=== PATIENT | female | born 1995 | race Hispanic/Latino ===

== ENCOUNTER 2020-01-02 19:15 | Emergency (ER) | payer SELFPAY ==
[2020-01-02] MEDS ORDERED: SODIUM CHLORIDE 0.9% 1000 ML 1,000 ML IV ONE ×2 (19:33→19:34)
[2020-01-02] MEDS ORDERED: ZIPRASIDONE MESYLATE 20 MG VIAL IM ONE ×2 (19:34→19:36)
[2020-01-02] MEDS ORDERED: LORazepam 2 MG/ML VIAL IV ONE ×2 (19:34→21:06)
--- NOTE | 2020-01-02 19:35 | Emergency Department Report ---
History of Present Illness - General Chief Complaint: Overdose Stated Complaint: POSS OVERDOSE Time Seen by Provider: 01/02/20 19:20 Source: EMS Mode of arrival: Stretcher Limitations: Altered Mental Status - History of Present Illness Initial Comments: Patient is a 24-year-old female presents emergency room for possible overdose. Patient found to be altered. Patient is agitated. Patient difficult to control. Report from EMS. EMS states the patient has history of overdose and heroin use. Patient was given 2 of Narcan in the field with no response. MD Complaint: intentional overdose -: Sudden How Overdose Was Discovered: called family/friend Treatments Prior to Arrival: narcan, IV fluids - Related Data Allergies Allergy/AdvReac Type Severity Reaction Status Date / Time No Known Allergies Allergy Unverified 01/02/20 21:06 ED Review of Systems ROS: Stated complaint: POSS OVERDOSE Other details as noted in HPI Comment: Unobtainable due to pts medical conditions ED Past Medical Hx - Past Medical History Previous Medical History?: No - Surgical History Past Surgical History?: Yes - Family History Family history: no significant - Social History Smoking Status: Unknown if ever smoked Substance Use Type: Heroin ED Physical Exam - General General appearance: anxious, obtunded, other (Agitated) - Head Head exam: Present: atraumatic, normocephalic - Eye Eye exam: Present: normal appearance, PERRL Pupils: Present: mydriatic - ENT ENT exam: Present: mucous membranes dry - Neck Neck exam: Present: normal inspection - Respiratory Respiratory exam: Present: normal lung sounds bilaterally. Absent: respiratory distress, wheezes, rales - Cardiovascular Cardiovascular Exam: Present: regular rate, normal rhythm. Absent: systolic murmur, diastolic murmur, rubs, gallop - GI/Abdominal GI/Abdominal exam: Present: soft, normal bowel sounds - Rectal Rectal exam: Present: deferred - Extremities Exam Extremities exam: Present: normal inspection - Back Exam Back exam: Present: normal inspection - Neurological Exam Neurological exam: Present: altered - Expanded Neurological Exam Expanded Best Eye Response (Sage): (2) open to pain Best Motor Response (Eunice): (5) localizes to pain Best Verbal Response (Eunice): (2) incomprehsible sounds Eunice Total: 9 - Skin Skin exam: Present: warm, dry, intact, normal color. Absent: rash ED Course Vital Signs 0701/02/20 01/02/20 19:34 19:45 19:58 Temperature 98.6 F Pulse Rate 82 82 82 Respiratory 19 26 H 13 Rate Blood Pressure 125/98 72/31 Blood Pressure 72/31 [Right] O2 Sat by Pulse 99 100 100 Oximetry 01/02/20 01/02/20 01/02/20 20:00 20:15 20:29 Temperature Pulse Rate 75 104 H Respiratory 31 H 33 H 18 Rate Blood Pressure 72/31 72/31 Blood Pressure [Right] O2 Sat by Pulse 100 100 100 Oximetry 01/02/20 01/02/20 01/02/20 20:31 20:45 21:01 Temperature Pulse Rate 88 110 H 110 H Respiratory 31 H 27 H 36 H Rate Blood Pressure 72/31 72/31 116/69 Blood Pressure [Right] O2 Sat by Pulse 100 100 99 Oximetry 01/02/20 01/02/20 01/02/20 21:15 21:49 22:00 Temperature Pulse Rate 107 H 74 73 Respiratory 15 15 18 Rate Blood Pressure 116/69 116/69 114/75 Blood Pressure [Right] O2 Sat by Pulse 100 Oximetry 01/03/20 00:15 Temperature 98.1 F Pulse Rate 73 Respiratory 20 Rate Blood Pressure Blood Pressure 118/73 [Right] O2 Sat by Pulse 100 Oximetry - Reevaluation(s) Reevaluation #1: Initial valuation done. Patient is altered. Patient agitated and fighting with caregivers. Patient will be given Geodon and Ativan. Patient has a history of overdose. 01/02/20 19:31 Reevaluation #2: Patient resting comfortably in bed. Vital signs are being monitored. Vital signs are stable. 01/02/20 20:53 Reevaluation #3: Patient still resting in bed. Patient not agitated. Patient's vital signs stable. 01/02/20 21:53 Reevaluation #4: Patient still resting in bed. Patient still lethargic but arousable with lots of stimuli 01/02/20 00:53 Reevaluation #5: Patient is alert and oriented x3. Patient is awake in the room. Patient denies suicidal and homicidal ideations. Patient states this is an accidental overdose. Patient states she was just trying to get high with her friends. Patient states she was taking cocaine, meth, heroin. Patient's Hoover will be removed. I discussed all results and clinical findings with patient. I discussed plan of care with patient. Patient agrees with plan of care. Patient is stable for discharge. Patient will be discharged home. Patient given discharge instructions. Patient voiced understanding of discharge instructions. 01/03/20 02:48 ED Medical Decision Making - Lab Data Result diagrams: 01/02/20 19:54 01/02/20 19:54 - EKG Data -: EKG Interpreted by Me EKG shows normal: sinus rhythm, axis, intervals, QRS complexes, ST-T waves Rate: normal - Radiology Data Radiology results: report reviewed CT head/brain wo con INDICATION: ams. TECHNIQUE: All CT scans at this location are performed using the following dose modulation technique: Automated exposure control. CONTRAST: None. COMPARISON: None available. FINDINGS: The ventricular system is appropriate in size and configuration without midline shift. Negative for mass, stroke or hemorrhage. Imaged bones and paranasal sinuses are clear. IMPRESSION: Negative CT brain without contrast. - Medical Decision Making Patient is a 24-year-old female that presents emergency room for altered mental status, overdose and agitation. Patient was severely agitated and patient was given Geodon and Ativan. Patient had labs done which were essentially unremarkable except for a positive UDS. After patient was monitored for multiple hours, the patient became alert and oriented x4. Patient denied suicidal homicidal ideations. Patient also denied an intentional overdose and stated this was an ex overdose and the patient was try to get high. Patient's head CT was negative. Patient stable for discharge. Patient was given discharge instructions. I encouraged patient not to use drugs anymore. I encouraged patient to go to rehab. Patient will be given rehab resources. - Differential Diagnosis Overdose, drug abuse, altered mental status, agitation Critical Care Time: Yes Critical care time in (mins) excluding proc time.: 55 Critical care attestation.: If time is entered above; I have spent that time in minutes in the direct care o f this critically ill patient, excluding procedure time. Critical Care Time: 55 minutes ED Disposition Clinical Impression: Agitation, Polysubstance abuse Overdose Qualifiers: Encounter type: initial encounter Injury intent: accidental or unintentional Qualified Code(s): T50.901A - Poisoning by unspecified drugs, medicaments and biological substances, accidental (unintentional), initial encounter Altered mental status Qualifiers: Altered mental status type: unspecified Qualified Code(s): R41.82 - Altered mental status, unspecified Disposition: DC-01 TO HOME OR SELFCARE Is pt being admited?: No Does the pt Need Aspirin: No Condition: Stable Instructions: Benzodiazepine Abuse (ED), Cocaine Abuse (ED), Narcotic Abuse (ED), Methamphetamine Abuse (ED), Polysubstance Abuse (ED), Medical Clearance for Substance Abuse Treatment (ED) Additional Instructions: Patient to follow-up with primary care in 2 to 3 days. Patient to consider going to rehab. Patient to stop using drugs.. Patient to rest. Patient to increase water. Patient to take Tylenol or ibuprofen as needed for pain. Patient to return to the ER if condition worsens, changes or new symptoms arise. Referrals: PRIMARY CARE, [Primary Care Provider] - 2-3 Days [facility] [Outside] - 2-3 Days [facility] [Outside] - 2-3 Days Time of Disposition: 02:53
[2020-01-02] MEDS ORDERED: LORazepam 2 MG/ML VIAL ONE (19:37)
[2020-01-02 20:17] LABS: Basophils % (Auto) 0.3 % (0.0-1.8); Eosinophils % (Auto) 0.2 % (0.0-4.3); Hematocrit 43.5 % (30.3-42.9); Hemoglobin 14.4 gm/dl (10.1-14.3); Mean Corpuscular HGB Conc 33 % (30-34); Mean Corpuscular Volume 86 fl (79-97); Monocytes # (Auto) 0.6 K/mm3 (0.0-0.8); Monocytes % (Auto) 5.2 % (0.0-7.3); Platelet Count 386 K/mm3 (140-440); Red Blood Count 5.05 M/mm3 (3.65-5.03); Red Cell Distribution Width 16.1 % (13.2-15.2)
[2020-01-02 20:24] LABS: Alanine Aminotransferase 9 units/L (7-56); Albumin 4.7 g/dL (3.9-5); Blood Urea Nitrogen 9 mg/dL (7-17); Calcium 10.5 mg/dL (8.4-10.2); Hemolysis Index 38
[2020-01-02 20:28] LABS: BUN/Creatinine Ratio 15
[2020-01-02 20:43] LABS: Bacteria,Urine 1+ /HPF (Negative); Bilirubin,Urine NEG (Negative); Blood,Urine NEG (Negative); Color,Urine Yellow (Yellow); Mucus,Urine FEW /HPF; Protein,Urine <15 mg/dL mg/dL (Negative); RBC,Urine < 1.0 /HPF (0.0-6.0); Urobilinogen,Urine < 2.0 mg/dL (<2.0); WBC,Urine < 1.0 /HPF (0.0-6.0)
[2020-01-02 20:50] LABS: Amphetamine Screen,Urine PRESUMPTIVE POSITIVE; Benzodiazepines Screen,Urine PRESUMPTIVE POSITIVE; Cannabinoid Screen,Urine PRESUMPTIVE POSITIVE; Cocaine Screen,Urine PRESUMPTIVE NEGATIVE; Methadone Screen,Urine PRESUMPTIVE NEGATIVE; Opiate Screen,Urine PRESUMPTIVE POSITIVE
[2020-01-02] MEDS ORDERED: diphenhydrAMINE 50 MG/ML VIAL ONE (21:04)
[2020-01-02] MEDS ORDERED: diphenhydrAMINE 50 MG/ML VIAL IV ONE (21:06)
--- NOTE | 2020-01-02 21:56 | Cat Scan Report ---
CT head/brain wo con INDICATION: ams. TECHNIQUE: All CT scans at this location are performed using the following dose modulation technique: Automated exposure control. CONTRAST: None. COMPARISON: None available. FINDINGS: The ventricular system is appropriate in size and configuration without midline shift. Nega tive for mass, stroke or hemorrhage. Imaged bones and paranasal sinuses are clear. IMPRESSION: Negative CT brain without contrast. Signer Name: Juan David Dover MD Signed: 01/02/2020 9:52 PM Workstation Name: [id number]
[2020-01-03 03:10] VITALS: BP 132/75
== END 2020-01-03 03:10 | disposition home or self-care (01) ==
LOC: ED 19:15
DX: T50.912A Poisoning by multiple unspecified drugs, medicaments and biological substances, intentional self-harm, initial encounter (principal); R41.82 Altered mental status, unspecified; R45.1 Restlessness and agitation; Y92.89 Other specified places as the place of occurrence of the external cause
CPT/HCPCS: 36415; 70450; 80053; 80307; 81001; 82140; 82550; 85025; 93005; 96361; 96372; 96374; 96375; 96376; 99285; J1200; J2060; J3486; J7030; 80320; G0480